=== PATIENT | female | born 1955 | race Caucasian/White ===

== ENCOUNTER → 2017-11-12 | Outpatient (CLI) | payer BC ==
--- NOTE | 2017-11-12 16:41 | CONS ---
CONSULTATION DATE OF SERVICE: 11/12/2017 62-year-old lady who has been evaluated in the sleep center for possible obstructive sleep apnea-hypopnea syndrome and significant excessive daytime sleepiness. HISTORY OF PRESENT ILLNESS/SLEEP WAKE EVALUATION: SLEEP SCHEDULE: Patient's usual sleep schedule from 8 or 9 p.m. to 6:30 a.m. on weekdays and 7 or 8 a.m. on weekends. FALLING ASLEEP: No problem with falling asleep, although she has TV set in bedroom. DURING SLEEP: She sleeps in different positions with loud snoring and awakenings from sleep up to 5 times with nocturia. Positive history of restless leg symptoms. DURING THE DAY/SLEEP WAKE EVALUATION: During the day, patient feels significantly sleepy in different situations including driving. [place] Sleepiness Scale is very fair range 19. No history of hypnagogic hallucinations. During the naps sometimes patient seeing dreams. No history of sleep paralysis. PAST MEDICAL HISTORY: Positive for hypertension, arthritis, peripheral neuropathy, changes of the level of blood sugar in the past, back problems, nasal breathing problems. PAST SURGICAL HISTORY: Back surgery possibly on the level around L4 in 1998. MEDICATIONS: Flonase nasal spray, metoprolol, Triamterene, hydrochlorothiazide, additional Dyazide, Vicoprofen, Motrin, Diclofenac. SOCIAL HISTORY: Positive for smoking about a half pack a day for 20 years. Quit about 13 years ago. Alcohol consumption rarely. FAMILY HISTORY: Hypertension, heart problems, angina, fibromyalgia, arthritis, lung problems. REVIEW OF SYSTEMS: Multiple awakenings from sleep. Significant excessive daytime sleepiness. PHYSICAL EXAM: lady without distress. BP 128/76, HR 95, RR 16, height 5 feet 7 inches, weight 221.2, BMI 32.6. Temperature 97.9, O2 saturation on room air 96%. Oropharynx: Low position of soft palate. Restriction of nasal breathing on the left side. Wide neck 16-1/2 inches in circumference. ABDOMEN: Slightly obese. Neck Supple, no JVD. Thyroid is not palpable. LUNGS Clear to percussion and to auscultation. Good air exchange. No wheezing or rhonchi. HEART S1, S2 regular. No murmurs, gallops, or rubs. ABDOMEN: Slightly obese. Soft and nontender. Bowel sounds are present. No organomegaly appreciated. EXTREMITIES No clubbing or cyanosis. [employer] Awake, alert, and oriented X3. Cranial nerves 2 to 7 intact. There is no fasciculation or atrophy. noted. No focal deficits observed. IMPRESSION: 1. Snoring, multiple awakenings from sleep with nocturia, low position of soft palate, wide neck, obesity, significant sleepiness, obstructive sleep apnea-hypopnea syndrome. 2. Significant excessive daytime sleepiness, very high range of [place] Sleepiness Scale dictated necessity to include hypersomnia and narcolepsy in differential diagnosis, although no history of hypnagogic hallucinations or sleep paralysis or cataplexy. 3. Obesity, BMI 34.6. 4. Hypertension. 5. History of restless legs. 6. History of arthritis. 7. History of peripheral neuropathy. 8. History to blood sugar changes in the past up and also down. 9. Back problems status post back surgery on the level L4 in 1998. 10.Nasal septum deviation, nasal breathing problems. PLAN: 1. Polysomnography for evaluation of patient's breathing during sleep. 2. CPAP/BiPAP titration if sleep study confirms obstructive sleep apnea-hypopnea syndrome. 3. Preferable position during sleep on the side. 4. No driving if patient feels any sleepiness. 5. I will see patient for follow up visit to explain results of testing and following plan. 6. Additionally multiple sleep latency test if the sleep study will be negative for obstructive sleep apnea-hypopnea syndrome. Thank you very much for referring this patient for consultation. Sincerely, Tho August MD, PhD, FAASM Diplomat of [employer] Instruction[employer] Assistant of [facility] [place] MMGERMAN / MOHINDER: [id number] /
== END | disposition home or self-care (01) ==
LOC: SLEEP 14:32
PROVIDERS: ATTEND Internal Medicine
DX: G47.33 Obstructive sleep apnea (adult) (pediatric) (principal); R35.1 Nocturia; M27.8 Other specified diseases of jaws; E66.9 Obesity, unspecified; I10 Essential (primary) hypertension; J34.2 Deviated nasal septum; M19.90 Unspecified osteoarthritis, unspecified site; Z68.34 Body mass index [BMI] 34.0-34.9, adult; Z87.898 Personal history of other specified conditions; Z86.69 Personal history of other diseases of the nervous system and sense organs; Z98.890 Other specified postprocedural states; Z79.51 Long term (current) use of inhaled steroids; Z79.1 Long term (current) use of non-steroidal anti-inflammatories (NSAID); Z79.891 Long term (current) use of opiate analgesic; Z79.899 Other long term (current) drug therapy; Z87.891 Personal history of nicotine dependence
CPT/HCPCS: 99211